=== PATIENT | male | born 1995 | race Caucasian/White ===

== ENCOUNTER 2018-05-26 13:55 | Emergency (ER) | payer BC, OTHER ==
[~2018-05-26] VITALS: Ht 182.9 cm; Wt 74.8 kg
[2018-05-26] MEDS ORDERED: HYDROcodone/APAP 5 MG/325 MG (LORTAB) TAB PO ONE (14:30)
--- NOTE | 2018-05-26 14:57 | ED Trauma-Multisystem ---
General Chief Complaint: Trauma-Non Activation Stated Complaint: HAND/LEG INJ - FELL OFF A HORSE/STEPPED ON LEG Nursing Triage Note: was bucked off of a horse 30-45 minutes ago at a rodeo and was drug by the horse. Is having R hand and wrist pain and bilateral lower leg pain. Has multiple abrasions to lower legs, R hand is swollen. Rates pain at 3/10. History of Present Illness Date Seen by Provider: May 26, 2018 Time Seen by Provider: 14:53 Initial Comments Patient presented to the emergency department for evaluation of injuries to his right hand wrist and left foot sustained while he was doing bareback riding at the [employer]. He said that his right arm got caught and he was being drug and playfully he had no head neck chest abdomen or other extremity trauma. He has multiple contusions and abrasions and says that his tetanus is up-to-date within last 5 years. He denies any weakness numbness or tingling. He walked in with a limp as he says it hurts in his legs diffusely but worse in his left foot. He is in no obvious distress with normal vital signs. Allergies and Home Medications Allergies Coded Allergies: No Known Drug Allergies (Unverified , 05/26/18) Patient Home Medication List Home Medication List Reviewed: Yes Review of Systems Review of Systems Constitutional: No chills, No fever Eyes: Denies Blurred Vision Respiratory: No cough, No short of breath Cardiovascular: Denies Chest Pain Gastrointestinal: No abdominal pain Musculoskeletal: joint pain, joint swelling, muscle pain; No neck pain All Other Systems Reviewed Negative Unless Noted: Yes Past Mwwfuwp-Tardgb-Fvbqfc Hx Patient Social History Alcohol Use: Occasionally Uses Recreational Drug Use: Yes Drug of Choice: MARIJUANA Smoking Status: Never a Smoker 2nd Hand Smoke Exposure: No Recent Foreign Travel: No Contact w/Someone Who Travel: No Recent Infectious Disease Expo: No Recent Hopitalizations: No Physical Abuse: No Sexual Abuse: No Mistreated: No Seasonal Allergies Seasonal Allergies: No Past Medical History Surgeries: Yes (r hand surgery, collarbone surgery) Orthopedic Respiratory: No Cardiac: No Neurological: No Genitourinary: No Gastrointestinal: No Musculoskeletal: No Endocrine: No HEENT: No Cancer: No Psychosocial: No Blood Disorders: No Adverse Reaction/Blood Tranf: No Physical Exam Vital Signs Vital Signs - First Documented 05/26/18 14:14 Temp 100.0 Pulse 89 Resp 18 B/P (MAP) 173/108 (129) Pulse Ox 100 Height, Weight, BMI Height: 6'0" Weight: 165lbs. oz. 74.358515ep; BMI Method:Stated General Appearance: No Apparent Distress, WD/WN Head: No Evidence of Injury Ears, Nose, Throat: Hearing Grossly Normal Neck: Full Range of Motion, Normal Inspection, Non Tender, Supple Cardiovascular: Regular Rate, Rhythm, No Edema, No Murmur, Normal Peripheral Pulses Respiratory: Chest Non Tender, Lungs Clear, Normal Breath Sounds, No Accessory Muscle Use, No Respiratory Distress Gastrointestinal: Non Tender Back: No Vertebral Tenderness Extremity: No Inflammation, No Pedal Edema; Pelvis Stable; No Slow Capillary Refill; Other (pain in right thenar eminence and thumb as well as pain with dorsiflexion of right wrist. No breaks in the skin. Left foot swollen between the first and second metatarsal.) Skin: Normal Color, Warm/Dry Progress/Results/Core Measures Results/Orders My Orders Orders - KASSI LYNNE DO Hand 3 View Right (05/26/18 14:21) Wrist 3 View Right (05/26/18 14:27) Foot 3 View Left (05/26/18 14:27) Hydrocodone/Apap 5/325 Tablet (Lortab 5 (05/26/18 14:30) Dipht,Pertuss(Acell),Tet Adult (Boostrix (05/26/18 15:15) Medications Given in ED Current Medications Medications Dose Ordered Sig/Andry Route Start Time Stop Time Status Last Admin Dose Admin Acetaminophen/ Hydrocodone Bitart 2 tab ONCE ONCE PO 05/26/18 14:30 05/26/18 14:31 DC 05/26/18 14:35 2 TAB Vital Signs/I&O 05/26/18 14:14 Temp 100.0 Pulse 89 Resp 18 B/P (MAP) 173/108 (129) Pulse Ox 100 Blood Pressure Mean: 129 Progress Progress Note : Time: 15:15 Progress Note Patient has no fractures on right hand wrist or left foot radiographs. I told him that fractures can sometimes be missed on x-ray and that if he is still having pain after one week he should follow with his primary care provider and get an MRI. For now he appears well and his neurovascular intact. He wasn't sure on his tetanus status I went ahead and ordered it and he is going to discuss it with his mom. Patient told to take NSAIDs for pain practice rice precautions and come back to the ED sooner with any new or worsening symptoms. Patient aware and agreeable with plan and verbalized understanding of the above instructions. Departure Impression Primary Impression: Thumb sprain Additional Impression: Sprain of foot, left Disposition: 01 HOME, SELF-CARE Condition: Stable Departure-Patient Inst. Decision time for Depature: 15:17 Referrals: NO,LOCAL PHYSICIAN (PCP/Family) Primary Care Physician Scripts Hydrocodone/Acetaminophen ([place] 5-325 Tablet) 1 Each Tablet 1 TAB PO Q6H for Pain MDD 10, #10 TAB Prov: KASSI LYNNE DO 05/26/18 KASSI LYNNE DO May 26, 2018 14:57
--- NOTE | 2018-05-26 15:00 | Diagnostic Imaging Report ---
INDICATION: Right wrist pain and swelling after being bucked off of a horse. COMPARISON: None. DISCUSSION: Three views of the right wrist were obtained. No acute fracture, dislocation, or other osseous abnormality identified. No significant degenerative disease. Alignment is anatomic. Soft tissues are unremarkable. IMPRESSION: 1. Negative right wrist. Dictated by: Dictated on workstation # [id number]
--- NOTE | 2018-05-26 15:01 | Diagnostic Imaging Report ---
Indication: Left foot pain and swelling after being bucked off of a horse. Comparison: None. Discussion: Three views of the left foot were obtained. No acute fracture, dislocation, or other osseous abnormality identified. No significant degenerative disease. Alignment is anatomic. Soft tissues are unremarkable. Impression: Negative left foot. Dictated by: Dictated on workstation # [id number]
--- NOTE | 2018-05-26 15:04 | Diagnostic Imaging Report ---
Indication: Right hand pain and swelling after being bucked off of a horse. Comparison: None. Discussion: Three views of the right hand were obtained. Tiny linear radiopaque foreign body within the soft tissues just proximal to the nailbed of the third finger. This measures approximately 5 mm in length and is less than 1 mm in diameter. No acute fracture, dislocation, or other osseous abnormality identified. No significant degenerative disease. Alignment is anatomic. Soft tissues are unremarkable. Impression: 1. Tiny foreign body within the distal soft tissues of the right third finger. No fracture. Dictated by: Dictated on workstation # [id number]
[2018-05-26] MEDS ORDERED: TETANUS,DIPTH,PERTUSS P/F (BOOSTRIX) 0.5 ML VIAL IM ONE (15:15)
[2018-05-26] MEDS ORDERED: HYDR-4226 PO (15:17)
[2018-05-26 15:42] VITALS: BP 175/93
== END 2018-05-26 15:50 | disposition home or self-care (01) ==
LOC: ER FS 13:59
DX: S63.601A Unspecified sprain of right thumb, initial encounter (principal); S93.602A Unspecified sprain of left foot, initial encounter; F12.10 Cannabis abuse, uncomplicated; Z98.890 Other specified postprocedural states; Z23 Encounter for immunization; V80.918A Animal-rider injured in other transport accident, initial encounter; W23.1XXA Caught, crushed, jammed, or pinched between stationary objects, initial encounter; Y93.52 Activity, horseback riding
CPT/HCPCS: 73110; 73130; 73630; 90715